=== PATIENT | female | born 1985 | race African-American/Black ===

== ENCOUNTER 2016-12-06 05:45 | Inpatient (IN) | payer OTHER ==
[~2016-12-06] VITALS: Ht 162.6 cm; Wt 96.2 kg
--- NOTE | 2016-12-06 08:48 | Operative Report ---
Operative/Inv Procedure Report Surgery Date: 12/06/16 Name of Procedure: repeat L/T C/S Pre-Operative Diagnosis: macrosomia Post-Operative Diagnosis: macrosomia Estimated Blood Loss: scant (375) Surgeon/Registered Vascular Technologist (Rvt): LOPEZ BLACKWOOD,PORTER Jane Anesthesia: block Monitors: FHR 144 Drains: em Complications: none Condition: good Operative Indication: macrosomia Operative/Procedure Note Note: The patient was taken to the operating room for repeat low transverse section a Em catheter was placed in the bladder heart rates are 1 44 bpm in the left lower quadrant the abdomen was prepped the patient was placed in the left lateral tilt. The patient was grounded after checking for the adequacy of anesthesia a Pfannenstiel incision was made over the old incision. Incision was carried down sharply to the fascia which was incised in the midline sharply the incision was carried out laterally sharply. The fascia was then divided from the underlying rectus muscles in the superior and inferior direction sharply the rectus muscle bundles were divided in the midline sharply the peritoneum was entered well above the dome of the bladder in the midline sharply. The uterus was checked for any adhesions and there were none a bladder flap was created on the lower uterine segment. The lower uterine segment was entered in the midline bluntly and the incision carried out laterally bluntly. The infant was delivered from the vertex position through clear amniotic fluid the myrna-pharynx was bulb suction and the cord was doubly clamped and cut the infant was handed to the pediatric attendant. The placenta was manually extracted the interior of the uterus was wiped clean with wet laps the uterus was externalized. The uterine incision was closed in 2 layers the first a running locking stitch and the second an imbricating over the first 0 Polysorb sutures were. The abdominal/peritoneal cavity was irrigated copiously the uterus was returned to its normal anatomical position the incision was once again checked for hemostasis which was judged to be excellent the parietal peritoneum was reapproximated in simple running fashion of 0 Polysorb suture. The fascia was reapproximated with 2 simple running 0 Polysorb sutures overlapping in the midline. Jay's fascia was reapproximated with a 3-0 undyed Polysorb suture in a simple running fashion the skin was closed with syed. Sponge instrument and needle counts were correct 3 estimated blood loss was 350 mL there were no complications no drains left at the end of the procedure was a Em catheter to the bladder.
[2016-12-06 08:57] VITALS: BP 124/59
[2016-12-06] MEDS ORDERED: PRENATAL TABLE1 EAC2 PO (08:57)
[2016-12-07 08:01] LABS: ABSOLUTE BASOPHIL COUNT 0 /CUMM (0.0-0.2); ABSOLUTE EOSINOPHIL COUNT 0 /CUMM (0.0-0.7); ABSOLUTE GRANULOCYTE CT 7.6 /CUMM (1.4-6.5); ABSOLUTE LYMPH COUNT 1.7 /CUMM (1.2-3.4); BASOPHIL % 0.3 % (0.0-2.0); EOSINOPHIL % 0.5 % (0-5); HEMATOCRIT 31.3 % (37-47); MEAN CORPUSCULAR HGB 26.8 PG (27.0-31.0); MEAN CORPUSCULAR HGB CONC 32.5 G/DL (33.0-37.0); MEAN CORPUSCULAR VOLUME 82.6 FL (81.0-99.0); MEAN PLATELET VOLUME 9.8 FL (7.4-10.4); PLATELET COUNT 216 /CUMM (130-400); RBC DISTRIBUTION WIDTH 15.6 % (11.5-14.5); RED BLOOD CELL CT 3.79 /CUMM (4.20-5.40); WHITE BLOOD CELL COUNT 10.4 /CUMM (4.8-10.8)
--- NOTE | 2016-12-07 11:49 | PN- OBGYN ---
Surgical Brief Attending Note Brief Attending Note: POD#1 pt is resting in bed, feels good, no complaints. tolerate diet, void without difficulties, flatus (+). PE: VSS CV RRR lungs CTA B/L Abdomen: soft, nontender, uterus firm, fundus below umbilicus, lochia mild. incision staple in place, D/C/I ext: DCT (-) A/P: 31yo, s/p RLTCS, POD#1 1. encorage ambulation 2. pain management as needed. 3 RT PP care
--- NOTE | 2016-12-08 14:57 | PN- OBGYN ---
Surgical Brief Attending Note Brief Attending Note: NO COMPLAINTS. DOING WELL. AMBULATING, VOIDING TOLERATING PAIN AND PO. +FLATUS. VSSAF FF@U INC C/D/I EXT: NO CALF TENDERNESS OR EDEMA Laboratory Tests 12/07/16 0630: CBC w Diff NO MAN DIFF REQ, RBC 3.79 L, MCV 82.6, MCH 26.8 L, RDW 15.6 H, MPV 9.8, Gran % 73.0, Lymphocytes % 16.7 L, Monocytes % 9.5 H, Eosinophils % 0.5, Basophils % 0.3, Absolute Granulocytes 7.6 H, Absolute Lymphocytes 1.7, Absolute Monocytes 1.0 H, Absolute Eosinophils 0, Absolute Basophils 0, PUBS MCHC 32.5 L Microbiology 12/06 0836 URINE ROUT: Urine Culture - CAN Cancelled: DUPLICATE 12/06 0750 URINE ROUT: Urine Culture - COMP A/P POD 2. DOING WELL. BABY DISCHARGED TO BIOLOGICAL PARENTS. ROUTINE POSTOP CARE. DISCHARGE IN AM. PRECAUTIONS ADVISED.
[2016-12-08] MEDS ORDERED: PERCOCET 5-3251 EACH PO (15:10)
[2016-12-08] MEDS ORDERED: IBUPROFEN800 M1 PO (15:10)
--- NOTE | 2016-12-09 10:38 | PN- OBGYN ---
Surgical Brief Attending Note Brief Attending Note: NO COMPLAINTS. DOING WELL. +AMBULATING, VOIDING, TOLERATING PAIN AND PO. HAS DECIDED TO PUMP AND DONATE HER MILK. MINIMAL BLEEDING. SMALL INCREASE IN PAIN SINCE STARTING TO PUMP. READY FOR DISCHARGE VSSAF FF@U INC: C/D/I. SAMANTHA REMOVED. EXT: NO CALF TENDERNESS OR EDEMA Laboratory Tests 12/07/16 0630: CBC w Diff NO MAN DIFF REQ, RBC 3.79 L, MCV 82.6, MCH 26.8 L, RDW 15.6 H, MPV 9.8, Gran % 73.0, Lymphocytes % 16.7 L, Monocytes % 9.5 H, Eosinophils % 0.5, Basophils % 0.3, Absolute Granulocytes 7.6 H, Absolute Lymphocytes 1.7, Absolute Monocytes 1.0 H, Absolute Eosinophils 0, Absolute Basophils 0, PUBS MCHC 32.5 L Vital Signs Date Time Temp Pulse Resp B/P B/P Pulse O2 O2 Flow FiO2 Mean Ox Delivery Rate 12/06 0857 124/59 Microbiology Date/Time Procedure - Status Source Growth 12/06 0836 Urine Culture - CAN URINE ROUT Cancelled: DUPLICATE Orders Procedure Date/time Status Discharge Patient 12/08 UNK Active Regular Diet 12/07 L Active Regular Diet 12/06 D Complete A/P. POD 3. DOING WELL. D/C TO HOME. PRECAUTIONS ADVISED. PT WAS A SURROGATE. MOOD IS GOOD. F/U 2 WEEKS IN OFFICE AND PRN.
== END 2016-12-09 11:30 | DRG 766 ==
LOC: GNO 05:45
PROVIDERS: ADMIT Obstetrics & Gynecology
PROC: 10D00Z1 Extraction of Products of Conception, Low, Open Approach (ICD-10-PCS; principal; 2016-12-06)
DX: O34.211 Maternal care for low transverse scar from previous cesarean delivery (principal); N85.8 Other specified noninflammatory disorders of uterus; O36.63X0 Maternal care for excessive fetal growth, third trimester, not applicable or unspecified; Z3A.39 39 weeks gestation of pregnancy; Z37.0 Single live birth
CPT/HCPCS: GNOS; 87086; J1200; J1580; J1650; J1885; J2310; J7120